=== PATIENT | female | born 1970 | race Two or more races ===

== ENCOUNTER 2017-05-23 12:43 | Emergency (ER) | payer OTHER ==
[~2017-05-23] VITALS: Ht 167.6 cm; Wt 79.7 kg
[2017-05-23 13:08] LABS: HEMATOCRIT 43.3 % (34.6-47.8); HEMOGLOBIN 14.3 g/dL (11.7-16.4); WHITE BLOOD COUNT 5.9 x10^3/uL (3.4-10)
[2017-05-23 13:20] LABS: BLOOD UREA NITROGEN 10 mg/dL (7-18)
[2017-05-23 15:13] VITALS: BP 115/61
[2017-05-24] MEDS ORDERED: OXYC-302 PO (23:32)
== END 2017-05-23 16:50 | disposition home or self-care (01) ==
LOC: ED 16:48
DX: O20.0 Threatened abortion (principal); D25.9 Leiomyoma of uterus, unspecified
CPT/HCPCS: 36415; 76801; 80048; 81001; 82040; 84702; 85025; 86900; 86901; 99285

== ENCOUNTER 2017-05-24 19:30 | Inpatient (IN) | payer OTHER ==
[~2017-05-24] VITALS: Ht 167.6 cm; Wt 78.8 kg
[2017-05-24] MEDS ORDERED: SODIUM CHLORIDE FLUSH 10ML SYR IVF ONE (20:00)
[2017-05-24] MEDS ORDERED: SODIUM CHLORIDE 0.9% 1,000ML IVBOLUS ONE (20:00)
[2017-05-24 20:11] LABS: ASPARTATE AMINO TRANSFERASE 14 U/L (15-37); BLOOD UREA NITROGEN 10 mg/dL (7-18)
[2017-05-24 20:26] LABS: HEMATOCRIT 40.7 % (34.6-47.8); HEMOGLOBIN 13.5 g/dL (11.7-16.4); WHITE BLOOD COUNT 8.9 x10^3/uL (3.4-10)
[2017-05-24] MEDS ORDERED: SODIUM CHLORIDE 0.9% 1,000 ML IV ONE (21:21)
[2017-05-24] MEDS ORDERED: SODIUM CHLORIDE FLUSH 10ML SYR IVF PRN (21:30)
[2017-05-24] MEDS ORDERED: MIDAZOLAM 1 MG/ML, 2ML ONE (21:51)
[2017-05-24] MEDS ORDERED: FENTANYL PF 250 MCG/5ML ONE (21:51)
[2017-05-24] MEDS ORDERED: SUCCINYLCHOLINE 20 MG/ML, 10ML ONE (21:54)
[2017-05-24] MEDS ORDERED: ONDANSETRON 2MG/ML, 2ML ONE (21:54)
[2017-05-24] MEDS ORDERED: DEXAMETHASONE 4 MG/ML, 1ML ONE (21:54)
[2017-05-24] MEDS ORDERED: PROPOFOL 10 MG/ML, 20ML ONE (21:54)
[2017-05-24] MEDS ORDERED: MEPERIDINE/PF 25MG/0.5ML IVPush PRN (22:00)
[2017-05-24] MEDS ORDERED: LABETALOL 5MG/ML, 20ML IV PRN (22:00)
[2017-05-24] MEDS ORDERED: OXYcodone 5 MG/5 ML ORAL.SOL UDC PO PRN (22:00)
[2017-05-24] MEDS ORDERED: ONDANSETRON 2MG/ML, 2ML IVPush PRN (22:00)
[2017-05-24] MEDS ORDERED: EPHEDRINE 50 MG/ML, 1ML IVPush PRN (22:00)
[2017-05-24] MEDS ORDERED: HYDROmorphone 1 MG/ML, 1ML IV PRN (22:00)
[2017-05-24] MEDS ORDERED: MIDAZOLAM 1 MG/ML, 2ML IV PRN (22:00)
[2017-05-24] MEDS ORDERED: HYDROcodone/APAP 7.5-325MG/15ML UDC PO PRN (22:00)
[2017-05-24] MEDS ORDERED: FENTANYL PF 100 MCG/2ML IV PRN (22:00)
[2017-05-24] MEDS ORDERED: ACETAMINOPHEN 325 MG TABLET PO PRN (22:00)
[2017-05-24] MEDS ORDERED: PROMETHAZINE 25 MG/ML, 1ML IV PRN (22:00)
[2017-05-24] MEDS ORDERED: hydrALAzine 20 MG/ML, 1ML IV PRN (22:00)
[2017-05-24] MEDS ORDERED: OXYcodone 5 MG/5 ML ORAL.SOL UDC ONE (22:45)
[2017-05-24 23:15] VITALS: BP 110/65
[2017-05-24] MEDS ORDERED: KETOROLAC 30 MG/1 ML IV PRN (23:30)
[2017-05-24] MEDS ORDERED: LACTATED RINGERS 500 ML IV ONE (23:30)
[2017-05-24] MEDS ORDERED: IBUPROFEN 600 MG TABLET PO PRN (23:30)
[2017-05-24] MEDS ORDERED: morphine SULFATE 10 MG/ML, 1ML IV PRN (23:30)
[2017-05-24] MEDS ORDERED: OXYcodone/APAP 5/325MG TABLET PO PRN (23:30)
[2017-05-24] MEDS ORDERED: ONDANSETRON 2MG/ML, 2ML IV PRN (23:30)
[2017-05-24] MEDS ORDERED: OXYC-302 PO (23:32)
[2017-05-25 00:55] VITALS: BP 97/59
== END 2017-05-25 02:30 | disposition home or self-care (01) | DRG 770 ==
LOC: ED 20:46 → EDIP 21:21 → 4NOR 23:19
PROVIDERS: ADMIT Obstetrics & Gynecology; ATTEND Obstetrics & Gynecology
PROC: 10D17ZZ Extraction of Products of Conception, Retained, Via Natural or Artificial Opening (ICD-10-PCS; principal; 2017-05-24 22:00)
DX: O03.4 Incomplete spontaneous abortion without complication (principal); D25.9 Leiomyoma of uterus, unspecified
CPT/HCPCS: 36415; 80053; 84702; 85025; 86850; 86900; 86923; 88305; 96374; J1100; J2250; J2405; J2704; J3010; J0330; J7030